=== PATIENT | female | born 1975 | race Two or more races ===

== ENCOUNTER 2018-02-25 17:19 | Emergency (ER) | payer BC, MEDICAID ==
[~2018-02-25] VITALS: Ht 157.5 cm; Wt 80.3 kg
[2018-02-25 17:19] VITALS: BP 105/66
== END 2018-02-25 17:52 | disposition home or self-care (01) ==
LOC: ER 17:23
DX: S40.261A Insect bite (nonvenomous) of right shoulder, initial encounter (principal); J40 Bronchitis, not specified as acute or chronic; M19.90 Unspecified osteoarthritis, unspecified site; W57.XXXA Bitten or stung by nonvenomous insect and other nonvenomous arthropods, initial encounter; Y93.89 Activity, other specified; Y92.89 Other specified places as the place of occurrence of the external cause; Y99.8 Other external cause status
CPT/HCPCS: 99283; A4606; Z7610

== ENCOUNTER 2018-03-07 15:58 | Emergency (ER) | payer MEDICAID ==
[~2018-03-07] VITALS: Ht 157.5 cm; Wt 76.2 kg
[2018-03-07 16:15] VITALS: BP 113/76
== END 2018-03-07 17:06 | disposition home or self-care (01) ==
LOC: ER 16:01
DX: L03.031 Cellulitis of right toe (principal)
CPT/HCPCS: A4606; Z7610